=== PATIENT | male | born 1995 | race African-American/Black ===

== ENCOUNTER 2020-02-17 08:36 | Emergency (ER) | payer SELFPAY ==
[2020-02-17] MEDS ORDERED: cefTRIAXone\\ROCEPHIN 1 GM VIAL ONE (09:40)
[2020-02-17] MEDS ORDERED: Lidocaine 1% 20 ML MDV ONE (09:40)
--- NOTE | 2020-02-17 10:38 | RAD ---
PORTABLE CHEST 1 VIEW: Date: 02/17/2020 Time: 0925 hours HISTORY: Cough. FINDINGS: Comparison made with exam of 01/31/2014. The heart size is normal. There is mild elevation of the right hemidiaphragm. An infiltrate is seen i n the right infrahilar region/medial lung base. No pneumothoraces or pleural effusions are seen. IMPRESSION: Findings are suspicious for right-sided pneumonia. POS: [facility]
== END 2020-02-17 10:10 | disposition home or self-care (01) ==
LOC: MADERS 08:36
DX: J18.9 Pneumonia, unspecified organism (principal); F17.210 Nicotine dependence, cigarettes, uncomplicated; J45.909 Unspecified asthma, uncomplicated
CPT/HCPCS: 71045; 96372; J0696; J2001

== ENCOUNTER 2020-07-26 23:46 | Emergency (ER) | payer SELFPAY ==
[2020-07-27] MEDS ORDERED: AMOXicillin 250 MG CAP ONE (00:14)
== END 2020-07-27 00:22 | disposition home or self-care (01) ==
LOC: MADERS 23:46
DX: J02.0 Streptococcal pharyngitis (principal); F12.10 Cannabis abuse, uncomplicated; F17.210 Nicotine dependence, cigarettes, uncomplicated; J45.909 Unspecified asthma, uncomplicated; Z71.6 Tobacco abuse counseling
CPT/HCPCS: 99406

== ENCOUNTER 2020-08-02 23:31 | Emergency (ER) | payer SELFPAY | END 2020-08-03 00:14 | disposition home or self-care (01) | LOC: MADERS 23:31 | DX: J02.0 Streptococcal pharyngitis (principal); F17.210 Nicotine dependence, cigarettes, uncomplicated; J45.909 Unspecified asthma, uncomplicated | CPT/HCPCS: 99282 ==

== ENCOUNTER 2020-08-04 18:08 | Emergency (ER) | payer SELFPAY ==
[2020-08-04] MEDS ORDERED: Dexamethasone 4 MG TAB ONE (18:49)
== END 2020-08-04 19:30 | disposition home or self-care (01) ==
LOC: MADERS 18:08
DX: J02.9 Acute pharyngitis, unspecified (principal); F17.210 Nicotine dependence, cigarettes, uncomplicated; J45.909 Unspecified asthma, uncomplicated
CPT/HCPCS: 87081; 87430; 99283; J8540

== ENCOUNTER 2020-08-07 12:05 | Emergency (ER) | payer SELFPAY ==
[2020-08-07] MEDS ORDERED: Iopamidol 370 76% 100 ML VIAL IV ONE (12:06)
[2020-08-07 13:06] LABS: #Basophils 0.1 thou/uL (0.0-0.2); #Eosinphils 0.1 thou/uL (0.0-0.7); #Lymphocytes 2.9 thou/uL (1.20-3.40); #Monocytes 1.1 thou/uL (0.11-0.59); #Neutrophils 6.6 thou/uL (1.40-6.50); %Basophils 1.3 % (0.0-1.0); %Eosinophils 1.2 % (0.0-10.0); %Lymphocytes 26.6 % (21.0-51.0); %Monocytes 10.4 % (0.0-10.0); %Neutrophils 60.5 % (42.0-75.0); Hemoglobin 13.7 g/dL (14.0-18.0); Mean Corpuscular HGB CONC 31.9 g/dL (32.0-36.0); Mean Corpuscular Hemoglobin 27.8 pg (27.0-31.0); Mean Corpuscular Volume 87.2 fL (78.0-98.0); Mean Platelet Volume 11.7 fL (7.4-10.4); Platelet Count 187 thou/uL (130-400); RBC Distribution Width 13.2 % (11.5-14.5); Red Blood Cell (RBC) Count 4.93 mill/uL (4.70-6.10); White Blood Cell (WBC) Count 10.9 thou/uL (4.8-10.8)
[2020-08-07 13:15] LABS: MONO NEGATIVE CONTROL ZONE White (Negative) (White); MONO POSITIVE CONTROL Pink Line (Positive) (PINK/RED); Mononucleosis NEGATIVE (NEGATIVE)
[2020-08-07 13:23] LABS: ALT (SGPT) 21 U/L (8-55); AST (SGOT) 18 U/L (5-34); Albumin 4.2 g/dL (3.5-5.0); Alkaline Phosphatase 52 U/L (40-110); Anion Gap 16 mmol/L (10-20); BUN (Urea Nitrogen) 13 mg/dL (8.9-20.6); Bilirubin, Total 0.5 mg/dL (0.2-1.2); Calc. Creatinine Clearance 0 mL/min (70-130); Calcium 9.2 mg/dL (7.8-10.44); Carbon Dioxide 27 mmol/L (22-29); Chloride 102 mmol/L (98-107); Estimated GFR-MDRD 87; Globulin 3.2 g/dL (2.4-3.5); Glucose 86 mg/dL (70-105); Protein, Total 7.4 g/dL (6.0-8.3); Sodium 141 mmol/L (136-145)
--- NOTE | 2020-08-07 14:04 | CT ---
CT neck soft tissues with contrast: 08/07/2020 HISTORY: 25-year-old male with throat pain COMPARISON: None FINDINGS: Dense contrast material is visualized in a large number of collateral veins throughout the left shoul gloria and posterior to the bilateral upper thoracic spine. The brachiocephalic, bilateral subclavian, bilateral common carotid, and bilateral internal carotid, arteries, are grossly normal. There is no cervical lymphadenopathy, abscess, or solid tumor. There is minimally increased enhancement and minimal thickening of the nasopharyngeal and oropharynge al mucosa.. Otherwise, no major pathology of the pharyngeal mucosal, parapharyngeal, submandibular, parotid, carotid, retropharyngeal, perivertebral, posterior cervical, visceral, or shredded filler cigar maker machine, spaces . No asymmetry or mass of the larynx or hypopharynx. The hypopharynx is distended with air. Epiglottis is of normal thickness. Unremarkable thyroid gland. Normal trachea. Lung apices are clear. No destructive osseous lesion. IMPRESSION: 1. Multiple collateral veins. 2. Distended hypopharynx. 3. Otherwise negative..
[2020-08-07] MEDS ORDERED: Dexamethasone 10 MG/ML VIAL ONE (14:41)
== END 2020-08-07 15:05 | disposition home or self-care (01) ==
LOC: MADERS 12:05
DX: J02.9 Acute pharyngitis, unspecified (principal); J45.909 Unspecified asthma, uncomplicated; Z87.891 Personal history of nicotine dependence
CPT/HCPCS: 70491; 80053; 85025; 86308; 96372; J1100; Q9967

== ENCOUNTER 2020-08-10 10:36 | Emergency (ER) | payer SELFPAY ==
[2020-08-10] MEDS ORDERED: predniSONE 20 MG TAB ONE (11:31)
== END 2020-08-10 11:40 | disposition home or self-care (01) ==
LOC: MADERS 10:36
DX: J02.9 Acute pharyngitis, unspecified (principal); Z87.891 Personal history of nicotine dependence; J45.909 Unspecified asthma, uncomplicated
CPT/HCPCS: 99282; J7512

== ENCOUNTER 2020-10-01 | Emergency (ER) | payer SELFPAY | END 2020-10-01 19:25 | disposition left against medical advice (07) | DX: Z53.21 Procedure and treatment not carried out due to patient leaving prior to being seen by health care provider (principal) ==